=== PATIENT | female | born 1960 | race Caucasian/White ===

== ENCOUNTER 2018-01-08 10:00 | Day surgery (SDC) | payer OTHER ==
[2018-01-07 11:32] LABS: HEMATOCRIT 42.5 % (36.0-48.0); HEMOGLOBIN 14.5 g/dL (12-16); MCH 29.5 pg (26.0-34.0); MCHC 34.1 g/dL (31.0-37.0); MCV 86.6 fL (80.0-100.0); MEAN PLATELET VOLUME 9.6 fL (7.4-10.4); RBC 4.91 10x6/uL (4.00-5.40); RDW 13.3 % (11.5-14.5); WBC 8.5 10x3/uL (4.8-10.8)
[~2018-01-08] VITALS: Ht 167.6 cm; Wt 96.2 kg
--- NOTE | ~2018-01-08 | OP ---
PATIENT NAME: MICHEAL FRANK MEDICAL RECORD: [id number] :56 LOCATION:D.FORMERLY [facility] [place] ADMISSION DATE: SURGEON: ADONAY CARRIZALES DATE OF OPERATION: 01/08/2018 SURGEON: Adonay Carrizales DPM PREOPERATIVE DIAGNOSES: 1. Hallux abductovalgus, left foot. 2. Metatarsal deformity, second metatarsal left foot. POSTOPERATIVE DIAGNOSES: 1. Hallux abductovalgus, left foot. 2. Metatarsal deformity, second metatarsal, left foot. PROCEDURES: 1. Hawk/Shiraz bunionectomy, left foot. 2. Edmond osteotomy, second metatarsal, left foot. ANESTHESIA: General. HEMOSTASIS: Pneumatic ankle tourniquet inflated to 250 mmHg. ESTIMATED BLOOD LOSS: Minimal. MATERIALS: One 2.5-mm headless screw, one [employer] Quick Staple, and one 2.0 cannulated screw. INJECTABLES: 30 mL of 0.5% bupivacaine plain. INDICATION: The patient has longstanding history of the above-mentioned deformities. We have discussed the proposed procedures. Risks and benefits were discussed. Complications were reviewed. All questions were answered. DESCRIPTION OF PROCEDURE: The patient was brought in the operating room and placed on the operating table in supine position. A timeout was called with Dr. Carrizales, who identified the patient, the surgical site, and surgery to be performed. Once appropriate anesthesia was obtained, the foot was prepped and draped in the usual aseptic manner. The pneumatic ankle tourniquet was inflated to 250 mmHg on the well-padded left ankle. PROCEDURE #1: Hawk/Shiraz bunionectomy, left foot. Attention was directed to the dorsal aspect of the first metatarsophalangeal joint where a 6 cm linear incision was made just medial to the extensor hallucis longus tendon. This incision was carried deep to soft tissue with care being taken to retract all vital neurovascular structures. All bleeders were cauterized along the way. Attention was then directed to the first intermetatarsal space where utilizing both blunt and sharp dissection, the conjoined tendon of the abductor hallucis muscle and the fibular sesamoidal ligament were both identified and sharply transected. Attention was then redirected to the dorsal aspect of the first metatarsophalangeal joint. The periosteum was reflected from the joint, thus revealing the head of the first OPERATIVE REPORT [id number] MICHEAL FRANK S metatarsal and the base of the proximal phalanx. Utilizing a sagittal saw, the hypertrophied medial eminence was removed from the first metatarsal head. Next, utilizing a sagittal saw, a V-shaped osteotomy was created in the head of the first metatarsal. This is a through and through osteotomy with the apex oriented distally. The capital fragment was translocated laterally and impacted upon the first metatarsal shaft. Next, utilizing manufacture's recommended technique, one 2.5-mm screw was placed across the osteotomy. Attention was then directed to the proximal phalanx. Utilizing a sagittal saw, a V-shaped osteotomy was created in the base of the proximal phalanx with the apex oriented laterally. The wedge of bone was then removed and the osteotomy was reduced. Utilizing manufacture's recommended technique, 1 Quick Staple was applied across the osteotomy. The surgical site was then irrigated with copious amounts of normal sterile saline via bulb syringe. Any remaining overhanging bone from the medial aspect of the first metatarsal shaft was removed with the sagittal saw. The periosteum was then reapproximated and coapted utilizing 3-0 Vicryl. The subcutaneous was then reapproximated and coapted using 4-0 Vicryl. The skin was then reapproximated and coapted using 4-0 nylon. PROCEDURE #2: Edmond osteotomy, second metatarsal, left foot. Attention was directed to the dorsal aspect of the second metatarsophalangeal joint where a 4-cm linear incision was made. This incision was carried deep to soft tissue with care being taken to retract all vital neurovascular structures. All bleeders were cauterized along the way. The periosteum was then reflected from the head of the second metatarsal, thus revealing the head and neck of the bone. Next, utilizing a sagittal saw, an osteotomy was created in the head of the metatarsal. This osteotomy was oriented from dorsal distal to proximal plantar. The capital fragment was then translocated proximally and fixated with a K-wire. Next, utilizing manufacture's recommended technique, one 2.0-mm screw was placed across the osteotomy. All remaining over hanging bone from the dorsal aspect of the second metatarsal was removed with a rongeur. The surgical site was then irrigated with copious amounts of normal sterile saline via bulb syringe. The periosteum was then reapproximated and coapted utilizing 3-0 Vicryl. The subcutaneous was then reapproximated and coapted using 4-0 Vicryl. The skin was then reapproximated and coapted using 4-0 nylon. A dressing consisting of Xeroform, 4 x 4's, Kerlix, and Coban was applied to the left foot. The pneumatic ankle tourniquet was deflated and capillary refill time is immediate to all digits of the left foot. The patient tolerated the procedure and anesthesia well. She left the operating room with vital signs stable. The patient will be discharged home with instructions to ice and elevate the left foot. She was provided with prescriptions for Demerol 50 mg, Phenergan 25 mg, and ibuprofen 800 mg. She was also dispensed a boot to help further offload her foot. She also has crutches at the house, which she will also further help offload her foot. She has my cell phone number for any after difficulties and there were no complications with this procedure. TRANSINT:[id number] Voice Confirmation ID: [id number] DOCUMENT ID: [id number] OPERATIVE REPORT [id number] MICHEAL FRANK DAVID J at 1200 CC: [id number] DICTATION DATE: 01/08/18 1426 DIAL POLISHER: 01/08/18 1505 [facility] 01/08/18 [facility] [address] [place] [address]
[~2018-01-08 10:00] MED LIST: AMBIEN CR 6.26.25 MG; ARMOUR THYROID60 M1 PO; CYCLOBENZAPRINE10 MG PO; CYTOMEL25 MCG PO; FLUTICASONE PRO16 GM; OMEPRAZOLE20 M1; PRINIVIL20 MG; PROAIR HFA8.5 GM; PROPECIA1 MG PO; XANAX0.25 MG PO; XYZAL5 MG PO
[2018-01-08 11:01] VITALS: BP 139/82; Ht 167.6 cm; Wt 96.2 kg
== END 2018-01-08 16:10 | disposition home or self-care (01) ==
LOC: D.OPS 10:00 → D.PAN 12:00 → D.OPS 12:00
PROVIDERS: Anesthesiology
DX: M20.12 Hallux valgus (acquired), left foot (principal); M21.962 Unspecified acquired deformity of left lower leg; Z01.812 Encounter for preprocedural laboratory examination